=== PATIENT | female | born 1995 | race Two or more races ===

== ENCOUNTER 2025-01-20 18:26 | Emergency (ER) | payer MEDICAID, SELFPAY ==
[2025-01-20 18:27] VITALS: BMI 25.0
[2025-01-20 18:38] VITALS: BP 124/82; PULSE 87; RESP 18; TEMP 37.2; O2SAT 99
--- NOTE | 2025-01-20 18:49 | PD.EDHA ---
ED Headache RME/HPI General Chief Complaint: Headache Stated Complaint: BORREGO SINCE LAST NIGHT, VOMITING TODAY Time Seen by Provider: 01/20/25 18:46 Arrival date/time: 01/20/25 18:26 29F with history of migraines presents to ED with 2 days of BORREGO, which got better after Excedrin, but then came back worse with some N/V. There is also some light sensitivity. Limitations: no limitations Related Data Home Medications ?Medication ?Instructions ?Recorded ?Confirmed prenat.vits,kamran,[id number] 1 tab PO QDAY 08/07/20 08/07/20 Previous Rx's ?Medication ?Instructions ?Recorded ibuprofen 800 mg tablet 800 mg PO Q8H PRN pain #30 tabs 08/08/20 rizatriptan 10 mg disintegrating See Rx Instructions PO .COMPLEX 01/20/25 tablet ([employer]alt-[employer]) #14 tabs Allergies Allergy/AdvReac Type Severity Reaction Status Date / Time No Known Allergies Allergy Verified 01/20/25 18:29 Review of Systems Review of Systems Systems Reviewed: All systems reviewed, normal except as documented Constitutional Constitutional: Reports system reviewed and no additional complaints, except as documented, Reports as per HPI, Denies fever(s) and Reports headache(s) Eyes Eyes: Reports as per HPI and Reports photophobia ENT Ears, Nose, Mouth, and Throat: Denies disequilibrium and Reports headache(s) Cardiovascular Cardiovascular: Reports system reviewed and no additional complaints, except as documented, Denies chest pain and Denies dyspnea Respiratory Respiratory: Reports system reviewed and no additional complaints, except as documented, Denies cough and Denies dyspnea Gastrointestinal Gastrointestinal: Reports system reviewed and no additional complaints, except as documented, Reports as per HPI, Denies abdominal pain, Reports nausea and Reports vomiting Neurologic Neurologic: Reports system reviewed and no additional complaints, except as documented, Denies confusion, Denies disequilibrium and Reports headache(s) Psychiatric Psychiatric: Denies confusion Past Medical History Past Medical History NEUROLOGIC: Positive Neurological Disorders and Migraine; Negative Epilepsy CARDIAC: Negative Cardiac Disorders or Congestive Heart Failure RESPIRATORY: Negative Chronic Obstructive Pulmonary Disease (COPD) GASTROINTESTINAL: Negative Gastrointestinal Disorders or Hepatitis GENITOURINARY: Negative Genitourinary Disorders or Renal Disease REPRODUCTIVE: Positive Previous Pregnancies (SAB X2); Negative Endometriosis, Genital Herpes, Gonorrhea, Pelvic Inflammatory Disease, Syphilis or Uterine Prolapse MUSCULOSKELETAL: Negative Musculoskeletal Disorders ENDOCRINE: Negative Endocrine Disorders, Diabetes Mellitus Type 1 or Diabetes Mellitus Type 2 HEMATOLOGIC: Positive Blood Disorders and Anemia OTHER HISTORY: Negative Autoimmune Disease, Falls, Blood Transfusions, Blood Transfusion Reaction, Anesthesia Reactions, MRSA, VRSA, Vancomycin-Resistant Enterococci, Human Immunodeficiency Virus (HIV), Chicken Pox, Measles, Mumps, Rubella (Urdu Measles), Pertussis, Clostridium Difficile or Cancer Family History FAMILY HISTORY: Positive Family Cardiac Disorders (FATHER:MURMUR); Negative Family Psychiatric Problems, Family Respiratory Disorders, Family Gastrointestinal Problems, Family Cancer, Family Surgery or Family Anesthesia Reaction Surgical History SURGICAL: Positive Ear Surgery and Tonsillectomy; Negative Section Social History SMOKING STATUS: Never smoker ED Exam General Limitations: Present no limitations General appearance: Present alert and in no apparent distress Head Head exam: Present atraumatic Eye Eye exam: Present normal appearance, PERRL and EOMI ENT ENT exam: Present normal exam, normal oropharynx and mucous membranes moist Neck Neck exam: Present normal inspection, full ROM and trachea midline Chest Chest inspection: Present normal inspection and symmetric chest wall rise Respiratory Respiratory exam: Present normal lung sounds bilaterally Cardiovascular Cardiovascular exam: Present regular rate, normal rhythm and normal heart sounds Abdominal Exam Abdominal exam: Present soft and normal bowel sounds Extremities Exam Extremities exam: Present normal inspection and full ROM Back Exam Back exam: Present normal inspection and full ROM Neurological Exam Neurological exam: Present alert, oriented X3 and CN II-XII intact Psychiatric Psychiatric exam: Present normal affect and normal mood Skin Skin exam: Present warm, dry, intact and normal color Course Quality Measures none Orders Category Date Time Status Metoclopramide [Reglan] Med 01/20/25 18:46 Discontinued 10 mg PO X1 ONE SUMAtriptan INJ [Imitrex Inj] Med 01/20/25 18:46 Discontinued 6 mg SC X1 ONE Vital Signs Vital signs: Vital Signs Temperature 98.9 F 01/20/25 18:38 Pulse Rate 87 01/20/25 18:38 Respiratory Rate 18 01/20/25 18:38 Blood Pressure 124/82 01/20/25 18:38 Pulse Oximetry (%) 99 01/20/25 18:38 Oxygen Delivery Method Room Air 01/20/25 18:38 O2 at 99% on RA and WNLs Headache MDM Narrative MDM Narrative:: 29F with history of migraines presents to ED with 2 days of BORREGO, which got better after Excedrin, but then came back worse with some N/V. There is also some light sensitivity. Physical exam reveals normal pupil response and EOM. CN II-XII grossly intact. Speech normal. Gait normal. Patient is afebrile, calm, and alert. Migraine meds improved symptoms. Patient data External records reviewed:: [facility] previous records Clinical information provided by:: patient Social determinants that could affect healthcare access:: none Patient has the following chronic illnesses:: migraines How is presenting disease/condition affected by chronic disease/condition?: exacerbated by Evaluation data The following diagnostics were reviewed and interpreted by me:: other (specify) (none) Lab and/or radiology exams considered but not ordered:: not ordered Interpretation Summary: n/a Medications / Prescriptions Medications or Prescriptions considered but not ordered:: ordered Medication administrations:: Medication Administration History Discontinued Medications Metoclopramide HCl (Metoclopramide 5 Mg Tablet) 10 mg PO X1 ONE Stop: 01/20/25 18:47 Last Admin: 01/20/25 19:02 Dose: 10 mg Documented By: Sumatriptan Succinate (Sumatriptan Inj 6 Mg/0.5 Ml Vial) 6 mg SC X1 ONE Stop: 01/20/25 18:47 Last Admin: 01/20/25 19:03 Dose: 6 mg Documented By: above Consultations Consultation(s) initiated? (list below): No Diagnosis Differential diagnosis headache: migraine, tension headache, subarachnoid hemorrhage, headache, meningitis, sinusitis and postconcussion syndrome Most likely diagnosis given after review of the tests above:: migraine Admission Indicated Admission indicated?: not indicated Admission Request Was there a request for admission?: No Disposition Plan Disposition Plan: Discharge Discharge Attestation Discharge Attestation: The patient and all family members were given an opportunity to ask questions and understood the discharge instructions. Discharge instructions specifically effects, indications for sooner follow up or return to the emergency department, and the expected course of current diagnosis. Patient condition: Stable Discharge Plan Plan Patient Disposition: HOME (Self Care) Discharge Disposition comment: Stable Prescriptions/Referrals Prescriptions/Med Rec: New rizatriptan [Maxalt[employer]] 10 mg tablet,disintegrating See Rx Instructions .ROUTE .COMPLEX Qty: 14 0RF Rx Instructions: take 1 tab at onset of headache; if no relief may repeat 1 tab after at least 2 hrs; max = 3 tabs/24 hr No Action prenat.vits,akmran,[id number] Tablet 1 tab PO QDAY ibuprofen 800 mg tablet 800 mg PO Q8H PRN (Reason: pain) Qty: 30 0RF Referrals: No Primary/Family,Physician [Primary Care Provider] - In 1 week Problem List Clinical Impression: Migraine Patient/Caregiver Discharge Instructions Education Materials: ED Headache, Migraine, Classic Additional Instructions: Please follow-up with PCP within 24-48 hours and return immediately if symptoms worsen. Avoid Excedrin. Try this new med. Print Language: Faroese Stand Alone Forms: Patient Portal Info Letter PA/TICKET MANAGER Supervising Physician PA/TICKET MANAGER Supervising Physician: Dr. Dobbs
[2025-01-20] MEDS: METOCLOPRAMIDE 5 MG TABLET 10 MG PO (19:02)
[2025-01-20] MEDS: SUMAtriptan INJ 6 MG/0.5 ML VIAL SC (19:03)
--- NOTE | 2025-01-20 20:04 | PC.NURSE ---
PT IS FEELING BETTER. PAIN DOWN TO 3. PT IS READY TO GO HOME.
== END 2025-01-20 20:10 | disposition home or self-care (01) ==
PROVIDERS: Emergency Provider Emergency Medicine
DX: G43.909 Migraine, unspecified, not intractable, without status migrainosus (principal)
CPT/HCPCS: 96372; 99283; J3030; A9270